=== PATIENT | female | born 1960 | race Caucasian/White ===

== ENCOUNTER 2020-09-05 17:17 | Inpatient (IN) | payer OTHER ==
[~2020-09-05] VITALS: Ht 162.6 cm; Wt 50.8 kg
[2020-09-05] VITALS (16 sets, daily range): BP systolic 97–121; BP diastolic 50–85
[2020-09-05] MEDS ORDERED: METOPROLOL (17:32)
[2020-09-05] MEDS ORDERED: RESPIMAT (17:32)
[2020-09-05] MEDS ORDERED: LEVOTHYROXINE (17:32)
[2020-09-05 17:41] LABS: ABSOLUTE BASOPHILS 0.1 thou/uL (0.0-0.2); ABSOLUTE EOSINOPHILS 0.1 thou/uL (0.0-0.7); ABSOLUTE LYMPHOCYTES 2.8 thou/uL (0.8-5.3); ABSOLUTE MONOCYTES 0.7 thou/uL (0.0-1.2); ABSOLUTE NEUTROPHILS 9.9 thou/uL (1.6-8.1); BASOPHILS 0.7 %; HEMATOCRIT 42.5 % (37.0-47.0); HEMOGLOBIN 14.5 gm/dL (12.0-15.0); LYMPHOCYTES 20.3 %; MCH 30.8 pg (26.0-34.0); MCV 90.6 fL (80.0-100.0); MONOCYTES 5.5 %; MPV 7.9 fl. (7.2-11.1); NUCLEATED RBCS 0 /100WBC; PLATELET COUNT* 275 thou/uL (150-400); POLYS 72.5 %; RDW-CV 13.2 % (10.5-14.5); WBC 13.6 thou/uL (4.0-11.0)
[2020-09-05 17:53] LABS: APTT 28.3 Seconds (25.0-31.3); CALCIUM 8.7 mg/dL (8.5-10.1); POTASSIUM 3.7 mmol/L (3.5-5.1); PROTIME 10.3 Seconds (9.20-11.50)
[2020-09-05 18:17] LABS: ALBUMIN 3.7 g/dL (3.4-5.0); CK-MB MASS 5.4 ng/mL (<0.5-3.6); MAGNESIUM 1.9 mg/dL (1.8-2.4); TOTAL BILIRUBIN 0.6 mg/dL (<0.1-1.0); TOTAL PROTEIN 7.5 g/dL (6.4-8.2)
[2020-09-06] VITALS (17 sets, daily range): BP systolic 102–131; BP diastolic 45–72
[2020-09-06 02:06] LABS: HEMATOCRIT 36.9 % (37.0-47.0); HEMOGLOBIN 12.7 gm/dL (12.0-15.0); MCH 30.8 pg (26.0-34.0); MCHC 34.4 g/dL (28.0-37.0); MCV 89.6 fL (80.0-100.0); MPV 7.8 fl. (7.2-11.1); RBC 4.12 mil/uL (4.20-5.00); RDW-CV 13.3 % (10.5-14.5); WBC 9.6 thou/uL (4.0-11.0)
[2020-09-06 02:15] LABS: CHOLESTEROL 133 mg/dL (<200); HDL CHOLESTEROL 27 mg/dL (>40); LDL CHOLESTEROL 81 mg/dL (<100); TC:HDL 4.9 Ratio (Not establshd); TRIGLYCERIDE 126 mg/dL (<150); VLDL 25 mg/dL (<40)
[2020-09-06 02:16] LABS: SERUM ASSESSMENT Clear
[2020-09-06 03:26] LABS: CALCIUM 7.9 mg/dL (8.5-10.1); CREATININE 0.8 mg/dL (0.6-1.3); POTASSIUM 3.9 mmol/L (3.5-5.1); TOTAL BILIRUBIN 0.6 mg/dL (<0.1-1.0); TOTAL PROTEIN 5.6 g/dL (6.4-8.2)
--- NOTE | 2020-09-06 10:08 | EKG ---
[place] [address] ELECTROCARDIOGRAM REPORT Name: DOMINIQUE NARVAEZ Room: [address] ADM IN M.R.#: [id number] Admission: 09/05/20 Attend Phys: Juwan Dan Discharge: Date of : 58 Date of Service: 09/06/20 0533 Report #: [id number] THIS REPORT FOR: //name// [facility] Test Date: 2020-09-06 Test Time: 05:33:24 Pat Name: DOMINIQUE NARVAEZ Department: Room: [address] Gender: F Health Associate: [id number] : 1960 Requested By: Ash Garza Order Number: [id number] Sherry MD: Erik Haile Measurements Intervals [place] Rate: 60 P: 54 WA: 178 QRS: -36 QRSD: 100 T: -38 QT: 474 QTc: 474 Interpretive Statements Sinus rhythm Inferior infarct, recent No previous ECG available for comparison Electronically Signed On 09-06-2020 10:08:32 CERNER ANALYST by Erik Haile [email or web address] <ELECTRONICALLY SIGNED> By: Erik Haile MD, [facility] 09/06/20 1008 0533 0533 Erik Haile MD, [facility] /EPI
--- NOTE | 2020-09-06 16:54 | CARD ---
[address] [address] CARDIAC CATH REPORT Name: DOMINIQUE NARVAEZ Atif Room: [address] IN ..#: [id number] Admission: 09/05/20 Attend Phys: Ash Garza MD, Discharge: Date of : 58 Report #: [id number] THIS REPORT FOR: //name// cc: JESSICA - No family physician/PCP FAM - No family physician/PCP ~ APPROVED REPORT Study performed: 09/05/2020 17:35:33 Patient Details Patient Status: ED Room #: The patient is a 59 year-old female Event Personnel Holland Prado RTR Monitor, Shu Arroyo RN RN, Bao Gross STREETCAR STARTERFLORENTINO PadgettubGreg John Auctioneer Tobacco Procedures Performed Left Heart Cath w/or w/o Coronaries [id number] [facility] w/Atherectomy Single RCA C9602 [facility] Hemostasis w/ Angioseal Indication STEMI Risk Factors Hypercholesterolemia, Tobacco History () Previous Procedures/Diagnoses Previous PCI Admission/Lab Medications/Medications given during procedure Lidocaine Subcut 20 ml, Angiomax IV 9 ml, Angiomax IV 20.4 ml per hr, Effient PO 60 mg, Aspirin PO 162 mg Procedure Narrative The patient was brought emergently to the Cardiac Catheterization Laboratory and was prepped and draped in a sterile manner. The right femoral was infiltrated with 2% Lidocaine subcutaneous anesthesia. A [place] 6 FR sheath was inserted into the right femoral artery. Coronary angiography was performed using coronary diagnostic catheters. The right coronary system was accessed and visualized with a Diagnostic JR4 6Fr catheter. The left coronary system was accessed and visualized with a Diagnostic JL4 6Fr catheter. The left ventricle was accessed and visualized with a Diagnostic Straight [place] [address] [place] [address] CARDIAC CATH REPORT Name: DOMINIQUE NARVAEZ Atif Room: [address]#: [id number] Admission: 09/05/20 Attend Phys: Ash Garza MD, Discharge: Date of : 58 Report #: [id number] catheter. Left ventricular/Aortic Valve gradient assessed via catheter pullback. Pre-demployment femoral angiogram was performed . Closure device was deployed with a 6 Fr Angioseal. The patient tolerated the procedure well and there were no complications associated with the procedure. There was no hematoma. Intraoperative Conscious Sedation Sedation start time: 1812 Case end Time: 1910 Fluoro Time: 19.7 minutes Dose: DAP 46583 cGycm2 1462.97 mGy Contrast Type and Amount: Visipaque 255 ml Diagnostic Cath Left Main 0% narrowing LAD 60% proximal and 50% mid LAD stenosis Circumflex 60% proximal and 50% first marginal stenosis Right Coronary Dominant vessel with tandem 75% proximal and mid vessel in-stent restenotic lesions and 95% distal right coronary stenosis with local thrombus at the site and ROSALBA II flow to the distal vessel Hemodynamics The aortic pressure is 124/89 mmHg with a mean of 110 mmHg. The left ventricular pressure is 138/7 mmHg with a mean of mmHg. The left ventricular end diastolic pressure is 20 mmHg. There was no gradient across the aortic valve upon pullback. PCI Technique Lesion Percutaneous coronary intervention was performed on the distal right coronary artery. The lesion stenosis prior to intervention was 95% with ROSALBA 2 flow. A 6F JR 4.0 Guide Catheter was used to engage the Right ostium. A IG: ProwaterFlex 180CM Interventional Guidewire was used to cross the lesion. BALLOON DILATION A Balloon catheter Mini Trek RX 2.0 X 12 was inserted and inflated up to 14.00atm for 16seconds. Additional Inflation: 17.00atm for 13seconds. STENT DEPLOYMENT A drug-eluting stent Orient RX Stent 2.0X12mm was inserted and inflated up to 14.00atm for 14seconds. Additional Inflation: 16.00atm for 13seconds. POST STENT [place] [address] CARDIAC CATH REPORT Name: DOMINIQUE NARVAEZ Room: [address] IN M.R.#: [id number] Admission: 09/05/20 Attend Phys: Ash Garza MD, Discharge: Date of : 58 Report #: [id number] A Balloon catheter NC Trek RX 2.5 X 12 was inserted and inflated up to 18.00atm for 19seconds. Additional Inflation: 18.00atm for 17seconds. Additional Inflation: 20.00atm for 10seconds. Final angiography reveals 0 % stenosis with ROSALBA 3 flow. PCI Technique Lesion 2 Percutaneous Coronary Intervention was performed on the proximal/mid right coronary artery. The lesion stenosis prior to intervention was 75% with ROSALBA 3 flow. A 6F JR 4.0 Guide Catheter was used to engage the Right ostium. A IG: ProwaterFlex 180CM Interventional Guidewire was used to cross the lesion. Balloon Dilation A Balloon catheter AngioSculpt PTCA 2.5 X 10mm was inserted and inflated up to 10atm for 20seconds. Additional Inflation: 12atm for 19seconds. Additional Inflation: 12atm for 18seconds. Stent Deployment A drug-eluting stent Resolute RX 2.5X22 was inserted and inflated up to 14.00atm for 15seconds. Additional Inflation: 17.00atm for 10seconds. Additional Inflation: 18.00atm for 16seconds. Final angiography reveals 10 % stenosis with ROSALBA 3 flow. Comments The PCI was technically complex by virtue of severe in-stent restenotic lesions affecting the proximal and mid right coronary artery requiring atherotomy/atherectomy prior to stenting this portion of the vessel after previously stenting the culprit lesion in the distal RCA. Conclusion 1. Acute inferior wall ST segment elevation myocardial infarction 2. Significant multivessel coronary artery disease characterized by the following: A tandem 75% proximal and mid right coronary stenoses followed by 95% distal right coronary stenosis with local thrombus at the site and ROSALBA II flow to the distal vessel B 60% proximal with 50% mid LAD stenosis [address] [address] CARDIAC CATH REPORT Name: DOMINIQUE NARVAEZ Room: [address] IN M.R.#: [id number] Admission: 09/05/20 Attend Phys: Ash Garza MD, Discharge: Date of : 58 Report #: [id number] 60% proximal with 50% first marginal stenosis in the nondominant circumflex 2. Moderate elevation of left ventricular end-diastolic pressure at rest 3. Successful PCI with deployment of a drug-eluting stent at the site of 95% distal right coronary stenosis with 0% residual narrowing no residual thrombus and ROSALBA-3 flow to the distal vessel 4. Successful atherotomy/atherectomy and stenting of the proximalmid right coronary artery with 10% residual narrowing following stent deployment and ROSALBA-3 flow to the distal vessel Recommendations Cardiac Risk Reduction Program Aggressive Medical Therapy Medications Administered Aspirin (any) Prasugrel Diagnostic Cath Approved by: Ash Garza MD Date/Time: 09/06/2020 16:48:04 <ELECTRONICALLY SIGNED> By: Ash Garza MD, FACC 09/06/20 1654 1654 1654Ash Garza MD, FACC /INF
[2020-09-07] VITALS: BP 129/66
[2020-09-07 04:00] VITALS: BP 114/53
[2020-09-07 08:00] VITALS: BP 108/55
[2020-09-07] MEDS ORDERED: METOPROLOL TART25 MG PO (09:23)
[2020-09-07] MEDS ORDERED: EFFIENT10 MG PO (09:23)
[2020-09-07] MEDS ORDERED: ASPIR 8181 MG PO (09:23)
[2020-09-07] MEDS ORDERED: LIPITOR 40 MG T40 M1 PO (09:23)
[2020-09-07 11:11] VITALS: BP 128/60
--- NOTE | 2020-09-07 12:45 | 2DMMODE ---
[place] [address] 2 D/M-MODE ECHOCARDIOGRAM Name: NARVAEZDOMINIQUE Atif Room: [address] IN M.R.#: [id number] Admission: 09/05/20 Attend Phys: Juwan Dan Discharge: 09/07/20 Date of : 58 Date of Service: 09/07/20 1245 Report #: [id number] THIS REPORT FOR: cc: FAM - No family physician/PCP FAM - No family physician/PCP Erik Haile MD [facility] ~ APPROVED REPORT Study performed: 09/07/2020 09:59:20 EXAM: Comprehensive 2D, Doppler, and color-flow Echocardiogram Patient Location: In-Patient Room #: [facility] Status: routine BSA: 1.53 HR: 71 bpm BP: 108/55 mmHg Rhythm: NSR Other Information Study Quality: Good Indications Acute PR 2D Dimensions IVSd: 14.85 (7-11mm) LVOT Diam: 19.18 (18-24mm) LVDd: 51.42 mm PWd: 8.68 (7-11mm) Ascending Ao: 26.97 (22-36mm) LVDs: 33.43 (25-40mm) Aortic Root: 33.05 mm Volumes Left Atrial Volume (Systole) LA ESV Index: 17.40 mL/m2 Aortic Valve AoV Peak Nahid.: 1.50 m/s AO Peak Gr.: 9.04 mmHg LVOT Max P.04 mmHg AO Mean Gr.: 4.54 mmHg LVOT Mean P.58 mmHg LVOT Max V: 1.23 m/s AO V2 VTI: 26.13 cm LVOT Mean V: 0.72 m/s ZULEMA (VTI): 2.82 cm2 LVOT V1 VTI: 25.49 [place] [address] 2 D/M-MODE ECHOCARDIOGRAM Name: DOMINIQUE NARVAEZ Room: [address] IN M.R.#: [id number] Admission: 09/05/20 Attend Phys: Juwan Dan Discharge: 09/07/20 Date of : 58 Date of Service: 09/07/20 1245 Report #: [id number] Mitral Valve E/A Ratio: 1.14 MV Decel. Time: 159.54 ms MV E Max Nahid.: 0.99 m/s MV PHT: 46.27 ms MVA (PHT): 4.76 cm2 TDI E/Lateral E': 9.90 E/Medial E': 14.14 Medial E' Nahid.: 0.07 m/s Lateral E' Nahid.: 0.10 m/s Pulmonary Valve PV Peak Nahid.: 1.08 m/s PV Peak Gr.: 4.63 mmHg Tricuspid Valve RAP Estimate: 5.00 mmHg TR Peak Gr.: 20.34 mmHg RVSP: 25.00 mmHg PA Pressure: 25.00 mmHg Left Ventricle The left ventricle is normal size. severe hypokinesis noted of the base of the inferior wall There is normal left ventricular wall thickness. Left ventricular systolic function is borderline. LVEF is 45-50%. The left ventricular diastolic function is normal. Right Ventricle The right ventricle is normal size. The right ventricular systolic function is normal. Atria The left atrium size is normal. The right atrium size is normal. Aortic Valve The aortic valve is normal in structure. No aortic regurgitation is present. There is no aortic valvular stenosis. Mitral Valve The mitral valve is normal in structure. Mild mitral regurgitation. No evidence of mitral valve stenosis. Tricuspid Valve The tricuspid valve is normal in structure. Trace tricuspid regurgitation. estimated pa pressure 25 [place] [address] 2 D/M-MODE ECHOCARDIOGRAM Name: DOMINIQUE NARVAEZ Room: [address] IN ..#: [id number] Admission: 09/05/20 Attend Phys: Juwan Dan Discharge: 09/07/20 Date of : 58 Date of Service: 09/07/20 1245 Report #: [id number] Pulmonic Valve The pulmonary valve is normal in structure. There is no pulmonic valvular regurgitation. Great Vessels The aortic root is normal in size. IVC is normal in size and collapses >50% with inspiration. Pericardium There is no pericardial effusion. <Conclusion> LVEF is 45-50%. severe hypokinesis noted of the base of the inferior wall <ELECTRONICALLY SIGNED> By: Erik Haile MD, [facility] 09/07/20 1245 1245 1245 Erik Haile MD, FACC /INF
--- NOTE | 2020-09-08 08:45 | D ---
[address] [address] DISCHARGE SUMMARY Name: DOMINIQUE NARVAEZ Atif Room: [address] IN M.R.#: [id number] Admission: 09/05/20 Attend Phys: Ash Garza MD, Discharge: 09/07/20 Date of : 58 Report #: [id number] THIS REPORT FOR: //name// cc: JESSICA - No family physician/PCP JESSICA - No family physician/PCP ~ CC: [facility] physician/PCP Ash Garza MD [facility] DATE OF SERVICE: 09/07/2020 DATE OF DISCHARGE: 09/07/2020. DISCHARGE DIAGNOSES: 1. Acute inferior wall ST elevation myocardial infarction. 2. Coronary artery disease with prior history of percutaneous coronary intervention and stenting to the proximal to mid right coronary artery. 3. Hypertension. 4. Dyslipidemia. 5. Tobacco use. 6. Hypothyroidism. PROCEDURES DURING THE HOSPITALIZATION: 1. Coronary angiography. 2. Percutaneous coronary intervention with drug-eluting stent placement to the distal right coronary artery. 3. Atherectomy and stent placement to the proximal right coronary artery. HOSPITAL COURSE: The patient was admitted to the hospital on 09/05/2020 with acute onset chest burning and pain. The patient had a somewhat late presentation to the hospital. EKG showed ST elevation in the inferior leads consistent with acute ST elevation myocardial infarction. The patient was taken emergently to the cardiac catheterization lab and found to have a subtotal occlusion of the distal right coronary artery, for which she had percutaneous coronary intervention. The patient's hospitalization was otherwise unremarkable. HOME MEDICATIONS: Effient 10 mg p.o. daily, atorvastatin 40 mg p.o. daily, aspirin 81 mg daily, levothyroxine 0.1 mg daily, metoprolol tartrate [address] [place] [address] DISCHARGE SUMMARY Name: DOMINIQUE NARVAEZ Room: [address]#: [id number] Admission: 09/05/20 Attend Phys: Ash Garza MD, Discharge: 09/07/20 Date of : 58 Report #: [id number] DISPOSITION: The patient has been asked to follow up with Cardiology in 2 weeks. <ELECTRONICALLY SIGNED> By: Bunny Villalobos MD, FACC 09/08/20 0845 0936 [id number] Villalobos MD, FACC /nt
--- NOTE | 2020-09-08 09:19 | H ---
[address] [address] HISTORY AND PHYSICAL Name: DOMINIQUE NARVAEZ Room: [address] IN M.R.#: [id number] Admission: 09/05/20 Attend Phys: Ash Garza MD, Discharge: 09/07/20 Date of : 58 Report #: [id number] THIS REPORT FOR: //name// cc: JESSICA Rios family physician/PCP JESSICA - Blanca family physician/PCP ~ CC: JESSICA physician/PCP Ash Garza DATE OF SERVICE: 09/05/2020 The patient going to ICU 7 on 09/05/2020. HISTORY OF PRESENT ILLNESS: The patient is a 59-year-old female with a history of coronary artery disease, status post remote percutaneous coronary intervention. She does not recall the specifics of that procedure other than it was 15 years ago. She has continued to smoke and also has hypertension. Today, she had a burning chest pain that waned and she was able to go to sleep and then there was recrudescence in the mid to late afternoon. She ultimately was brought to the [facility] with evidence for an inferior wall ST segment elevation myocardial infarction with persistent chest pain. When I saw her, she still experienced significant chest discomfort and an EKG revealed inferior ST segment elevation compatible with acute inferior wall infarction. Risk factors of hypertension: Question hypercholesterolemia and tobacco habituation, currently smoking one-half pack of cigarettes per day. SOCIAL HISTORY: The patient is . She is a smoker. PHYSICAL EXAMINATION: GENERAL: Demonstrates an acutely distressed middle-aged female. VITAL SIGNS: Blood pressure 120/70, pulse rate is 72, respirations are 18 per minute. NECK: Jugular venous pressure is normal. CHEST: Clear with slightly decreased breath sounds diffusely. CARDIAC: Reveals normal first and second heart sounds without murmurs or gallops. ABDOMEN: Soft. EXTREMITIES: Without edema with intact femoral, pedal and radial pulses. EKG reveals sinus rhythm alternating with an idioventricular rhythm with inferior ST segment elevation suggesting acute inferior ST segment elevation myocardial infarction. The patient was taken to the catheterization laboratory and cardiac catheterization revealed a subtotal occlusion [place] [address] HISTORY AND PHYSICAL Name: NARVAEZDOMINIQUE J Room: [address]#: [id number] Admission: 09/05/20 Attend Phys: Ash Garza MD, Discharge: 09/07/20 Date of : 58 Report #: [id number] with ROSALBA 2 flow to the distal vessel with tandem 75% proximal and mid right coronary narrowings. There was a 60% proximal LAD stenosis with 30% mid circumflex stenosis. Given the clinical picture and the aforementioned findings, I elected to proceed with percutaneous coronary intervention of the right coronary artery, deploying one 2.0 x 12 mm Daniel drug-eluting stent in the distal right coronary artery with 0% residual narrowing at the site of previously noted 95% stenosis with ROSALBA 2 flow. There were interval problems with tandem 75% proximal and mid right coronary narrowings. I dilated this with a 2.5 x 12 mm NC TREK to 18 atmospheres and then a 2.5 x 10 AngioSculpt balloon to 14-16 atmospheres. I then placed one 2.5 x 22 mm Daniel drug-eluting stent, spanning the proximal and mid lesions with 10% residual narrowing and ROSALBA 3 flow to the distal vessel. The patient's pain remitted and electrocardiographic changes remitted as well. She continued to demonstrate periods of accelerated idioventricular rhythm in the context of the acute infarct. IMPRESSION: 1. Acute inferior wall ST segment elevation myocardial infarction. 2. Coronary artery disease. 3. Status post PTCA with angioplasty, atherectomy and stenting of the right coronary artery. 4. Tobacco habituation. 5. Hypertension. 6. Hypothyroidism. RECOMMENDATIONS: 1. Continue Angiomax for 3 hours at a slightly reduced dose. 2. Dual antiplatelet therapy with prasugrel and aspirin. 3. MADELINE inhibition and beta-blockade. 4. Statin. 5. Counseling for tobacco habituation. 6. Cardiac rehabilitation. Critical care times is 40 minutes from 1900 to 1940 on 09/05/2020. <ELECTRONICALLY SIGNED> By: Ash Garza MD, FACC 09/08/20 0919 42 18Ash Garza MD, FACC /nt
== END 2020-09-07 11:20 | disposition home or self-care (01) | DRG 246 ==
LOC: M.CL 17:17 → M.ERS 17:17 → M.TBA-CV 20:09 → M.ICU 20:09 → M.2W 09-06 14:07
PROVIDERS: Family Medicine; ADMIT Internal Medicine; ATTEND Internal Medicine
DX: T82.855A Stenosis of coronary artery stent, initial encounter (principal); I21.19 ST elevation (STEMI) myocardial infarction involving other coronary artery of inferior wall; I50.43 Acute on chronic combined systolic (congestive) and diastolic (congestive) heart failure; J44.9 Chronic obstructive pulmonary disease, unspecified; I11.0 Hypertensive heart disease with heart failure; I25.10 Atherosclerotic heart disease of native coronary artery without angina pectoris; E78.5 Hyperlipidemia, unspecified; E03.9 Hypothyroidism, unspecified; F17.200 Nicotine dependence, unspecified, uncomplicated; Y83.8 Other surgical procedures as the cause of abnormal reaction of the patient, or of later complication, without mention of misadventure at the time of the procedure; Z20.828 Contact with and (suspected) exposure to other viral communicable diseases; Z79.899 Other long term (current) drug therapy; Z95.5 Presence of coronary angioplasty implant and graft; Y92.89 Other specified places as the place of occurrence of the external cause

== ENCOUNTER 2021-04-08 13:22 | Emergency (ER) | payer OTHER ==
[~2021-04-08] VITALS: Ht 160 cm; Wt 54.9 kg
[~2021-04-08 13:22] MED LIST: ASPIR 8181 MG PO; EFFIENT10 MG PO; LEVOTHYROXINE; LIPITOR 40 MG T40 M1 PO; METOPROLOL; METOPROLOL TART25 MG PO; RESPIMAT
[2021-04-08 14:48] VITALS: BP 128/64
== END 2021-04-08 14:48 | disposition home or self-care (01) ==
LOC: M.ERS 13:22
DX: U07.1 COVID-19 (principal); Z20.822 Contact with and (suspected) exposure to COVID-19; J44.9 Chronic obstructive pulmonary disease, unspecified; F17.210 Nicotine dependence, cigarettes, uncomplicated